=== PATIENT | male | born 1985 | race Caucasian/White ===

== ENCOUNTER 2019-03-23 07:51 | Emergency (ER) | payer OTHER ==
[~2019-03-23] VITALS: Ht 170.2 cm; Wt 70.8 kg
[2019-03-23] MEDS ORDERED: PREZCOBIX 8001 EACH (08:09)
[2019-03-23] MEDS ORDERED: DESCOVY 200-251 EACH (08:09)
== END 2019-03-23 12:00 | disposition home or self-care (01) ==
LOC: ER 07:51 → EDBD 08:12 → ER 12:00
DX: E86.0 Dehydration (principal); R11.11 Vomiting without nausea

== ENCOUNTER 2020-12-16 06:20 | Emergency (ER) | payer OTHER ==
[~2020-12-16] VITALS: Ht 170.2 cm; Wt 70.3 kg
[~2020-12-16 06:20] MED LIST: DESCOVY 200-251 EACH; PREZCOBIX 8001 EACH
[2020-12-16] MEDS ORDERED: ZITHROMAX TRI-500 MG PO (11:20)
== END 2020-12-16 11:26 | disposition home or self-care (01) ==
LOC: ER 06:20
DX: J45.998 Other asthma (principal); R05 Cough